=== PATIENT | male | born 1995 | race Caucasian/White ===

== ENCOUNTER 2020-08-10 15:10 | Observation (INO) | payer BC ==
[2020-08-10] MEDS ORDERED: TYLENOL 325 MG PO PRN (17:09)
[2020-08-10] MEDS: Sodium Chloride 0.9% 1000 ML 1,000 ML IV SCH (18:27)
[2020-08-11] MEDS: Sodium Chloride 0.9% 1000 ML 1,000 ML IV SCH ×4 (02:17→23:08)
[2020-08-11 04:46] LABS: Hemoglobin 13.5 gm/dl (12.5-18.0); Mean Cell Volume 85.6 fl (78-100); Mean Corpuscular Hemoglobin 28.2 pg (26-32); Mean Corpuscular Hgb Concent. 32.9 g/dl (32-36); Mean Platelet Volume 9.4 fl (7.5-11.0); Platelet Count 225 K/mm3 (150-450); Red Blood Count 4.79 M/mm3 (4.1-5.6); Red Cell Distribution Width 13.2 % (11.5-14.0); White Blood Count 6.5 K/mm3 (4.0-10.5)
[2020-08-11 04:56] LABS: ALBUMIN 4.3 g/dL (3.5-5.0); ALKALINE PHOSPHATASE 96 U/L (38-126); ANION GAP 9.4 MEQ/L (5-15); BLOOD UREA NITROGEN 11 mg/dL (9-20); CHLORIDE 102 mmol/L (98-107); Calcium 9.6 mg/dL (8.4-10.2); Carbon Dioxide 31 mmol/L (22-30); EST GLOMERULAR FILTRATION RATE > 60.0 ML/MIN; Glucose 102 mg/dL (74-106); Potassium 3.9 mmol/L (3.5-5.1); SGOT/AST 191 U/L (17-59); SGPT/ALT 75 U/L (0-50); SODIUM 138 mmol/L (137-145)
[2020-08-11 05:41] LABS: CK-Creatinine Phosphokinase 13982 U/L (55-170)
--- NOTE | 2020-08-11 08:07 | PCM.HP ---
History of Present Illness - Chief Complaint Chief Complaint: RHABDOMYLOSIS History of Present Illness: is a 24 year old male who was seen in the office by TECHNICAL ACCOUNT MANAGER yesterday, he had started working out hard with biking, weight lifting and has significant muscle pain and fatigue since earlier in the week, found to have elevated cpk, he feels some better after hydration overnight, only c/o muscle soreness typical from working out. - Review of Systems Constitutional: No Fever, No Chills Respiratory: No Cough, No Short Of Breath Cardiac: No Chest Pain, No Edema, No Syncope Musculoskeletal: Myalgias Neurological: No Symptoms All Other Systems: Reviewed and Negative Medications & Allergies Home Medications: Home Medication List Lisdexamfetamine Dimesylate [Vyvanse] 40 mg PO DAILY 08/10/20 [History Confirmed 08/10/20] Melatonin 10 mg PO QHS 08/10/20 [History Confirmed 08/10/20] Allergies/Adverse Reactions: Allergies Allergy/AdvReac Type Severity Reaction Status Date / Time No Known Drug Allergies Allergy Unverified 08/10/20 17:09 - Past Medical History Past Medical History: Yes Neurological History: No Pertinent History ENT History: No Pertinent History Cardiac History: No Pertinent History Respiratory History: No Pertinent History Endocrine Medical History: No Pertinent History Musculoskelatal History: Other GI Medical History: No Pertinent History History: No Pertinent History Male Reproductive Disorders: No Pertinent History Comment: KNEE ISSUES - Past Surgical History Past Surgical History: Yes Neuro Surgical History: No Pertinent History Cardiac History: No Pertinent History Respiratory Surgery: No Pertinent History GI Surgical History: No Pertinent History Genitourinary Surgical Hx: No Pertinent History Male Surgical History: No Pertinent History Other Surgical History: shoulder - Social History Smoking Status: Never smoker Alcohol: None Drug Use: none - Physical Exam Vital Signs: Vital Signs - 24 hr Temp Pulse Resp BP Pulse Ox 08/11/20 07:08 97.8 F 73 16 107/60 96 08/11/20 04:19 98.2 F 77 16 109/55 98 08/10/20 23:30 98.3 F 76 20 128/73 96 08/10/20 19:33 98.7 F 86 18 130/77 98 08/10/20 17:18 98.2 F 76 20 127/61 96 08/10/20 17:11 98.2 F 76 20 127/61 96 General Appearance: no apparent distress Neurologic Exam: alert, oriented x 3, cooperative Respiratory Exam: normal breath sounds, lungs clear, No respiratory distress Cardiovascular Exam: regular rate/rhythm, normal heart sounds, normal peripheral pulses Gastrointestinal/Abdomen Exam: soft, normal bowel sounds, No tenderness, No mass Extremity Exam: normal inspection, normal range of motion, pelvis stable Skin Exam: normal color, warm, dry, No rash Results - Labs Lab/Micro Results: Lab Results-Last 24 Hours 08/11/20 08/11/20 Range/Units 04:20 04:20 WBC 6.5 (4.0-10.5) K/mm3 RBC 4.79 (4.1-5.6) M/mm3 Hgb 13.5 (12.5-18.0) gm/dl Hct 41.0 L (42-50) % MCV 85.6 (78-100) fl MCH 28.2 (26-32) pg MCHC 32.9 (32-36) g/dl RDW 13.2 (11.5-14.0) % Plt Count 225 (150-450) K/mm3 MPV 9.4 (7.5-11.0) fl Sodium 138 (137-145) mmol/L Potassium 3.9 (3.5-5.1) mmol/L Chloride 102 (98-107) mmol/L Carbon Dioxide 31 H (22-30) mmol/L Anion Gap 9.4 (5-15) MEQ/L BUN 11 (9-20) mg/dL Creatinine 1.00 (0.66-1.25) mg/dL Estimated GFR > 60.0 ML/MIN Glucose 102 (74-106) mg/dL Calcium 9.6 (8.4-10.2) mg/dL Total Bilirubin 1.30 (0.2-1.3) mg/dL AST 191 H (17-59) U/L ALT 75 H (0-50) U/L Alkaline Phosphatase 96 (38-126) U/L Creatine Kinase 74115 H (55-170) U/L Serum Total Protein 7.0 (6.3-8.2) g/dL Albumin 4.3 (3.5-5.0) g/dL Assessment/Plan (1) Rhabdomyolysis Current Visit: Yes Status: Acute Assessment & Plan: secondary to exertion, will continue IV fluids to see cpk start to fall, has mild elevation of LFT's explained expected with physiology, renal function is preserved. Code(s): M62.82 - RHABDOMYOLYSIS
[2020-08-11] MEDS ORDERED: MEDICATION INTERVENTION MC SCH (08:45)
[2020-08-11] MEDS ORDERED: NON-FORMULARY ITEM (Melatonin [Melatonin] 10 MG) PO SCH (22:00)
[2020-08-12 00:12] VITALS: O2SAT 97
[2020-08-12 04:25] VITALS: BP 104/62; PULSE 69
[2020-08-12] MEDS: Sodium Chloride 0.9% 1000 ML 1,000 ML IV SCH (05:51)
[2020-08-12 05:58] LABS: Absolute Neutrophil Ct (ANC) 3.42 (1.4-6.9); BASOPHIL % 0.2 % (0.0-0.4); Basophil (Absolute #) 0.01 (0-0.4); Eosinophil % 2.6 % (0.00-5.0); Eosinophil (Absolute #) 0.16 (0-0.5); Hematocrit 41.9 % (42-50); Hemoglobin 13.9 gm/dl (12.5-18.0); Lymphocyte (Absolute #) 2.07 (1.0-4.6); Lymphocytes % 34.1 % (24.0-44.0); Mean Cell Volume 85.5 fl (78-100); Mean Corpuscular Hemoglobin 28.4 pg (26-32); Mean Corpuscular Hgb Concent. 33.2 g/dl (32-36); Mean Platelet Volume 9.5 fl (7.5-11.0); Monocyte (Absolute #) 0.41 (0.0-1.3); Monocytes % 6.8 % (0.0-12.0); Neutrophil % 56.3 % (36.0-66.0); Platelet Count 217 K/mm3 (150-450); Red Cell Distribution Width 13.1 % (11.5-14.0); White Blood Count 6.1 K/mm3 (4.0-10.5)
[2020-08-12 06:18] LABS: ALBUMIN 4.3 g/dL (3.5-5.0); ALKALINE PHOSPHATASE 111 U/L (38-126); ANION GAP 9.9 MEQ/L (5-15); BLOOD UREA NITROGEN 9 mg/dL (9-20); CHLORIDE 104 mmol/L (98-107); Calcium 9.6 mg/dL (8.4-10.2); Carbon Dioxide 27 mmol/L (22-30); Creatinine 1 0.97 mg/dL (0.66-1.25); EST GLOMERULAR FILTRATION RATE > 60.0 ML/MIN; Glucose 93 mg/dL (74-106); Potassium 4.1 mmol/L (3.5-5.1); SGOT/AST 184 U/L (17-59); SGPT/ALT 83 U/L (0-50); SODIUM 137 mmol/L (137-145); Total Protein 7.2 g/dL (6.3-8.2)
[2020-08-12 07:04] LABS: CK-Creatinine Phosphokinase 13627 U/L (55-170)
--- NOTE | 2020-08-12 08:08 | PCM.DS ---
Discharge Summary Date of Admission: 08/10/20 16:43 Admitting Physician: DANIEL DÍAZ Primary Care Provider: DANIEL DÍAZ Allergies Allergies No Known Drug Allergies Allergy (Unverified 08/10/20 17:09) Hospital Summary - Hospital Course Hospital Course: patient was admitted with elevated cpk and muscle pain following vigorous exercise, fluids were given and pain is resolved. currently has no symptoms and requesting to go home - Vitals & Intake/Output Vital Signs: Vital Signs Temperature 97.9 F 08/12/20 04:00 Pulse Rate 69 08/12/20 04:00 Respiratory Rate 18 08/12/20 04:00 Blood Pressure 104/62 08/12/20 04:00 O2 Sat by Pulse Oximetry 97 08/12/20 04:00 Intake & Output: Intake & Output 08/09/20 08/10/20 08/11/20 08/12/20 11:59 11:59 11:59 11:59 Intake Total 2360 5035 Output Total 3200 1000 Balance -840 4035 Weight 100.4 kg - Lab Result Diagrams: 08/12/20 05:45 08/12/20 05:45 Lab Results-Last 24 Hrs: Lab Results-Last 24 Hours 08/12/20 08/12/20 Range/Units 05:45 05:45 WBC 6.1 (4.0-10.5) K/mm3 RBC 4.90 (4.1-5.6) M/mm3 Hgb 13.9 (12.5-18.0) gm/dl Hct 41.9 L (42-50) % MCV 85.5 (78-100) fl MCH 28.4 (26-32) pg MCHC 33.2 (32-36) g/dl RDW 13.1 (11.5-14.0) % Plt Count 217 (150-450) K/mm3 MPV 9.5 (7.5-11.0) fl Gran % 56.3 (36.0-66.0) % Eos # (Auto) 0.16 (0-0.5) Absolute Lymphs (auto) 2.07 (1.0-4.6) Absolute Monos (auto) 0.41 (0.0-1.3) Lymphocytes % 34.1 (24.0-44.0) % Monocytes % 6.8 (0.0-12.0) % Eosinophils % 2.6 (0.00-5.0) % Basophils % 0.2 (0.0-0.4) % Absolute Granulocytes 3.42 (1.4-6.9) Basophils # 0.01 (0-0.4) Sodium 137 (137-145) mmol/L Potassium 4.1 (3.5-5.1) mmol/L Chloride 104 (98-107) mmol/L Carbon Dioxide 27 (22-30) mmol/L Anion Gap 9.9 (5-15) MEQ/L BUN 9 (9-20) mg/dL Creatinine 0.97 (0.66-1.25) mg/dL Estimated GFR > 60.0 ML/MIN Glucose 93 (74-106) mg/dL Calcium 9.6 (8.4-10.2) mg/dL Total Bilirubin 1.30 (0.2-1.3) mg/dL AST 184 H (17-59) U/L ALT 83 H (0-50) U/L Alkaline Phosphatase 111 (38-126) U/L Creatine Kinase 76957 H (55-170) U/L Serum Total Protein 7.2 (6.3-8.2) g/dL Albumin 4.3 (3.5-5.0) g/dL Discharge Exam General Appearance: no apparent distress, alert Respiratory Exam: normal breath sounds, lungs clear, No respiratory distress Cardiovascular Exam: regular rate/rhythm, normal heart sounds Gastrointestinal/Abdomen Exam: soft, No tenderness, No mass Extremity Exam: normal inspection, normal range of motion Skin Exam: normal color, warm, dry Final Diagnosis/Problem List - Final Discharge Diagnosis/Problem (1) Rhabdomyolysis Current Visit: Yes Status: Acute Assessment & Plan: adivsed to push water, no alcohol etc. no exercise and f/u in 1 week fore repeat labs cpk and cmp Code(s): M62.82 - RHABDOMYOLYSIS - Discharge Disposition: Home, Self-Care Condition: Stable Prescriptions: Continue Lisdexamfetamine Dimesylate [Vyvanse] 40 mg PO DAILY Melatonin 10 mg PO QHS Follow up with: DANIEL DÍAZ MD [Primary Care Provider] - 1 Week
== END 2020-08-12 08:35 | disposition home or self-care (01) ==
LOC: MED SURG 16:43
PROVIDERS: ADMIT Family Medicine; ATTEND Family Medicine
DX: M62.82 Rhabdomyolysis (principal)
CPT/HCPCS: 36415; 80053; 82550; 85025; 85027; G0378

== ENCOUNTER 2022-06-24 06:12 | Emergency (ER) | payer BC, OTHER ==
[2022-06-24] MEDS ORDERED: TORAdol 30 mg Injection IV ONE (06:36)
[2022-06-24] MEDS ORDERED: Sodium Chloride 0.9% 1000 ML 1,000 ML IV STA (06:36)
[2022-06-24] MEDS ORDERED: Zofran 4 MG/2 ML VIAL IV ONE (06:36)
[2022-06-24] MEDS ORDERED: TORAdol 30 mg Injection ONE (06:48)
[2022-06-24] MEDS ORDERED: Zofran 4 MG/2 ML VIAL ONE (06:48)
[2022-06-24] MEDS ORDERED: Sodium Chloride 0.9% 1000 ML 1,000 ML ONE (06:48)
[2022-06-24 06:54] LABS: Absolute Neutrophil Ct (ANC) 2.82 x10^3/uL (1.4-6.9); Basophil (Absolute #) 0.03 x10^3/uL (0-0.4); Eosinophil % 3.6 % (0.00-5.0); Eosinophil (Absolute #) 0.22 x10^3/uL (0-0.5); Hematocrit 44.7 % (42-50); Hemoglobin 14.6 g/dL (12.5-18.0); Lymphocytes % 43.6 % (24.0-44.0); Mean Cell Volume 86.3 fL (78-100); Mean Corpuscular Hemoglobin 28.2 pg (26-32); Mean Corpuscular Hgb Concent. 32.7 g/dL (32-36); Mean Platelet Volume 9.3 fL (7.5-11.0); Monocyte (Absolute #) 0.41 x10^3/uL (0.0-1.3); Monocytes % 6.6 % (0.0-12.0); Neutrophil % 45.5 % (36.0-66.0); Platelet Count 252 x10^3/uL (150-450); Red Blood Count 5.18 x10^6/uL (4.1-5.6); Red Cell Distribution Width 12.8 % (11.5-14.0); White Blood Count 6.2 x10^3/uL (4.0-10.5)
--- NOTE | 2022-06-24 07:00 | ERPHSYRPT ---
- History of Present Illness Historian: patient Exam Limitations: no limitations Patient Subjective Stated Complaint: pt arrived in er stating he beleives he has another kidney stone. pt has pain in flanl that he rates as 9/10. pain began yesterday Triage Nursing Assessment: pt appears pale and diaphoretic. pacing in room and cannot sit, pt states he is nauseated and has vomited at this time. Timing/Duration: yesterday, gradual onset, worse Activities at Onset: rest Quality: sharpness Abdominal Pain Onset Location: RLQ, flank Pain Radiation: groin Severity of Pain-Max: severe Severity of Pain-Current: severe Modifying Factors: Worsens With: movement, palpation Associated Symptoms: nausea, vomiting Previous symptoms: same symptoms as today <JOHN CARDONA - Last Filed: 06/24/22 06:57> <ABBI JOYCE - Last Filed: 06/24/22 07:56> - History of Present Illness Time Seen by Provider: 06/24/22 06:30 Physician History: 26-year-old male presented in the ER with chief complaint of right lower quadrant/flank pain since yesterday, moderate to severe sharp nature, radiating to the groin with associated nausea and vomiting. Reports having some dysuria this morning. No hematuria. No fever or chills reported reports having symptoms similar to last time when he had a kidney stone. (JOHN CARDONA) Allergies/Adverse Reactions: No Known Drug Allergies Allergy (Unverified 08/10/20 17:09) Home Medications: Lisdexamfetamine Dimesylate [Vyvanse] 40 mg PO DAILY 08/10/20 [History] Melatonin 10 mg PO QHS 08/10/20 [History] Travel Risk - International Travel Have you traveled outside of the country in past 3 weeks: No - Coronavirus Screening Are you exhibiting any of the following symptoms?: No Close contact with a COVID-19 positive Pt in past 14-21 Days: No - Vaccine Status Have you recieved a Covid-19 vaccination: No <JOHN CARDONA - Last Filed: 06/24/22 06:57> - Review of Systems Constitutional: No Symptoms Eyes: No Symptoms Ears, Nose, & Throat: No Symptoms Respiratory: No Symptoms Cardiac: No Symptoms Abdominal/Gastrointestinal: Abdominal Pain, Nausea, Vomiting Genitourinary Symptoms: No Symptoms Musculoskeletal: No Symptoms Skin: No Symptoms Neurological: No Symptoms Psychological: No Symptoms Endocrine: No Symptoms Hematologic/Lymphatic: No Symptoms Immunological/Allergic: No Symptoms <JOHN CARDONA Last Filed: 06/24/22 06:57> - Past Medical History Pertinent Past Medical History: Yes Neurological History: No Pertinent History ENT History: No Pertinent History Cardiac History: No Pertinent History Respiratory History: No Pertinent History Endocrine Medical History: No Pertinent History Musculoskeletal History: Other GI Medical History: No Pertinent History History: No Pertinent History Male Reproductive Disorders: No Pertinent History Other Medical History: KNEE ISSUES, kidney stones - Past Surgical History Past Surgical History: Yes Neuro Surgical History: No Pertinent History Cardiac: No Pertinent History Respiratory: No Pertinent History Gastrointestinal: No Pertinent History Genitourinary: No Pertinent History Male Surgical History: No Pertinent History Other Surgical History: shoulder - Social History Smoking Status: Never smoker Drug Use: none <JOHN CARDONA Last Filed: 06/24/22 06:57> - Physical Exam General Appearance: no apparent distress, alert Eye Exam: PERRL/EOMI Ears, Nose, Throat Exam: normal ENT inspection, pharynx normal Neck Exam: normal inspection, non-tender, supple, full range of motion Respiratory Exam: normal breath sounds, lungs clear Cardiovascular Exam: regular rate/rhythm, normal heart sounds Gastrointestinal/Abdomen Exam: soft, normal bowel sounds, tenderness (Right flank/right lower quadrant with some guarding without rebound tenderness) Back Exam: normal inspection, normal range of motion, CVA tenderness Extremity Exam: normal inspection, normal range of motion Neurologic Exam: alert, oriented x 3, cooperative Skin Exam: normal color SpO2 Interpretation: normal SpO2: 97 O2 Delivery: Room Air <JOHN CARDONA Last Filed: 06/24/22 06:57> - Nursing Vital Signs Nursing Vital Signs: Initial Vital Signs Temperature 97.6 F 06/24/22 06:28 Pulse Rate 76 06/24/22 06:28 Respiratory Rate 18 06/24/22 06:28 O2 Sat by Pulse Oximetry 97 06/24/22 06:28 Pain Scale Pain Intensity 4 Ordered Tests: Active Orders 24 hr Category Date Time Status IV Insertion STAT Care 06/24/22 06:36 Active NPO (ED) STAT Care 06/24/22 06:36 Active ABDOMEN AND PELVIS W/0 CONTRAS [CT] Stat Exams 06/24/22 07:15 Taken CBC W DIFF Stat Lab 06/24/22 06:45 Received CMP Stat Lab 06/24/22 06:45 Completed CULTURE,URINE Stat Lab 06/24/22 07:35 Received LIPASE Stat Lab 06/24/22 06:45 Completed UA W/RFX CULTURE Stat Lab 06/24/22 07:35 Completed Medication Summary Discontinued Medications Generic Name Dose Route Start Last Admin Trade Name Lit PRN Reason Stop Dose Admin Sodium Chloride 1,000 mls @ 999 mls/hr 06/24/22 06:36 06/24/22 06:53 Sodium Chloride 0.9% 1000 Ml IV 06/24/22 07:36 999 mls/hr .Q1H1M STA Administration Sodium Chloride Confirm 06/24/22 06:48 Sodium Chloride 0.9% 1000 Ml Administered 06/24/22 06:49 Dose 1,000 mls @ ud .ROUTE .STK-MED ONE Ketorolac Tromethamine 30 mg 06/24/22 06:36 06/24/22 06:52 Ketorolac Tromethamine 30 Mg/Ml Inj IV 06/24/22 06:37 30 mg STAT ONE Administration Ketorolac Tromethamine Confirm 06/24/22 06:48 Ketorolac Tromethamine 30 Mg/Ml Inj Administered 06/24/22 06:49 Dose 30 mg .ROUTE .STK-MED ONE Ondansetron HCl 4 mg 06/24/22 06:36 06/24/22 06:52 Ondansetron Hcl 4 Mg/2 Ml Vial IV 06/24/22 06:37 4 mg STAT ONE Administration Ondansetron HCl Confirm 06/24/22 06:48 Ondansetron Hcl 4 Mg/2 Ml Vial Administered 06/24/22 06:49 Dose 4 mg .ROUTE .STK-MED ONE Lab/Rad Data: Laboratory Result Diagrams 06/24/22 06:45 Laboratory Results 06/24/22 06/24/22 Range/Units 07:35 06:45 Sodium 141 (137-145) mmol/L Potassium 3.6 (3.5-5.1) mmol/L Chloride 103 (98-107) mmol/L Carbon Dioxide 28 (22-30) mmol/L Anion Gap 14.2 (5-15) MEQ/L BUN 14 (9-20) mg/dL Creatinine 1.32 H (0.66-1.25) mg/dL Estimated GFR > 60.0 ML/MIN Glucose 110 H (74-106) mg/dL Calcium 9.8 (8.4-10.2) mg/dL Total Bilirubin 1.10 (0.2-1.3) mg/dL AST 28 (17-59) U/L ALT 32 (0-50) U/L Alkaline Phosphatase 122 (38-126) U/L Serum Total Protein 7.1 (6.3-8.2) g/dL Albumin 4.3 (3.5-5.0) g/dL Lipase 86 (23-300) U/L Urinalys Dipstick Clnc MAIN LAB Urine Color DARK YELLOW (YELLOW) Urine Appearance SLIGHTLY CLOUDY (CLEAR) Urine pH 5.5 (5-6) Ur Specific [place] >=1.030 (1.005-1.025) POC Urine Protein Conf 30 (Negative) Urine Ketones NEGATIVE (NEGATIVE) Urine Nitrite NEGATIVE (NEGATIVE) Urine Bilirubin NEGATIVE (NEGATIVE) Urine Urobilinogen 0.2 (0-1) mg/dL Urine Leukocytes NEGATIVE (NEGATIVE) Urine WBC (Auto) 3-5 (0-5) /HPF Urine RBC (Auto) >101 (0-2) /HPF U Epithel Cells (Auto) NONE (FEW) /HPF Urine Bacteria (Auto) NONE SEEN (NEGATIVE) /HPF Urine RBC LARGE (0-5) Vlad/ul Calcium Oxalate Crystal 3-5 (NEGATIVE) /HPF Urine Mucus (Auto) SLIGHT (NEGATIVE) /HPF Ur Culture Indicated? YES Urine Glucose NEGATIVE (NEGATIVE) mg/dL <JOHN CARDONA - Last Filed: 06/24/22 06:57> - Progress Counseled pt/family regarding: lab results, diagnosis, need for follow-up, rad results <ABBI JOYEC - Last Filed: 06/24/22 07:56> - Progress Progress Note: 06/24/22 06:59 Work-up is pending, care is transferred to Dr. Joyce at shift change. (JOHN CARDONA) 06/24/22 07:53 CAT scan of the abdomen pelvis without contrast shows a 4 mm proximal ureteral calculus with mild hydronephrosis. No other acute intra-abdominal or intrapelvic abnormality. (ABBI JOYCE) <JOHN CARDONA - Last Filed: 06/24/22 06:57> - Departure Departure Disposition: Home Critical Care Time: No <ABBI JOYCE - Last Filed: 06/24/22 07:56> - Departure Clinical Impression: Right ureteral calculus Condition: Stable Additional Instructions: Drink plenty of fluids. Take ibuprofen 600 mg orally with food 3 times a day for the next 5 days. Call your hospital laboratory technician this morning to make arranges for follow-up appointment. Take the prescription medication as prescribed. Prescriptions: Hydrocodone/APAP 5/325 [[place]ardner 5/325 mg] 1 each PO Q8H PRN PRN #6 tablet MDD 3 PRN Reason: Pain Tamsulosin HCl 0.4 mg [Flomax 0.4 MG] 0.4 mg PO DAILY #7 cap
[2022-06-24 07:09] LABS: ALBUMIN 4.3 g/dL (3.5-5.0); ALKALINE PHOSPHATASE 122 U/L (38-126); ANION GAP 14.2 MEQ/L (5-15); BLOOD UREA NITROGEN 14 mg/dL (9-20); CHLORIDE 103 mmol/L (98-107); Calcium 9.8 mg/dL (8.4-10.2); Carbon Dioxide 28 mmol/L (22-30); Creatinine 1 1.32 mg/dL (0.66-1.25); EST GLOMERULAR FILTRATION RATE > 60.0 ML/MIN; Glucose 110 mg/dL (74-106); LIPASE 86 U/L (23-300); Potassium 3.6 mmol/L (3.5-5.1); SGOT/AST 28 U/L (17-59); SGPT/ALT 32 U/L (0-50); SODIUM 141 mmol/L (137-145); Total Protein 7.1 g/dL (6.3-8.2)
[2022-06-24 07:47] LABS: Mucus SLIGHT /HPF (NEGATIVE)
[2022-06-24 07:48] LABS: Appearance SLIGHTLY CLOUDY (CLEAR); Bilirubin NEGATIVE (NEGATIVE); Dipstick done @ ? MAIN LAB; Glucose NEGATIVE (NEGATIVE); Ketones NEGATIVE (NEGATIVE); Nitrite NEGATIVE (NEGATIVE); Ph 5.5 (5-6); Protein,Urine Dip 30 (Negative); RBC LARGE Ery/ul (0-5); Specific Gravity >=1.030 (1.005-1.025); Urine Cultured Indicated? YES; Urobilinogen 0.2 mg/dL (0-1)
[2022-06-24 07:49] LABS: RBC >101 /HPF (0-2)
[2022-06-24 07:50] LABS: Bacteria NONE SEEN /HPF (NEGATIVE)
[2022-06-24 08:02] VITALS: BP 116/75; PULSE 86; O2SAT 98
--- NOTE | 2022-06-24 09:08 | XRAY ---
Indication: Right lower quadrant pain. History renal stones. Multiple contiguous axial images obtained through the abdomen and pelvis without contrast using renal stone protocol. Comparison: None Lung bases clear. Heart not enlarged. Proximal right ureter demonstrates 4 mm calculus, approximately L3 level. Mild hydronephrosis consistent with obstructive uropathy. No free fluid/air. Noncontrasted stomach and bowel loops appear nonobstructed. Normal appendix. Remaining liver, gallbladder, pancreas, spleen, adrenal glands, kidneys, ureters, bladder, and aorta are unremarkable for noncontrast exam. Osseous structures intact. No ventral or inguinal hernias. Impression: 1. 4 mm proximal right ureter calculus producing obstructive uropathy. 2. Remaining CT abdomen/pelvis without contrast exam is negative.
== END 2022-06-24 08:24 | disposition home or self-care (01) ==
LOC: ED 06:12
DX: N13.2 Hydronephrosis with renal and ureteral calculous obstruction (principal); Z87.442 Personal history of urinary calculi; R10.31 Right lower quadrant pain; R11.2 Nausea with vomiting, unspecified; R30.0 Dysuria; Z79.899 Other long term (current) drug therapy; Z28.310 Unvaccinated for COVID-19; Z79.891 Long term (current) use of opiate analgesic
CPT/HCPCS: 36000; 36415; 74176; 80053; 81015; 83690; 85025; 87086; 96374; 96375; 99284; J1885; J2405